=== PATIENT | female | born 1975 | race Caucasian/White ===

== ENCOUNTER → 2020-04-20 10:37 | Outpatient (CLI) | payer OTHER, SELFPAY ==
[2020-04-20 12:54] LABS: Free T4, Direct Thyroxine 0.93 ng/dL (0.78-2.19)
[2020-04-20 13:08] LABS: Thyroid Stimulating Hormone 2.19 uIU/mL (0.47-4.68)
== END ==
PROVIDERS: PCP Internal Medicine; Referring Provider Obstetrics & Gynecology; Visit Provider Obstetrics & Gynecology
DX: N92.0 Excessive and frequent menstruation with regular cycle (principal)
CPT/HCPCS: 36415; 84439; 84443

== ENCOUNTER → 2020-05-02 11:05 | Outpatient (CLI) | payer OTHER, SELFPAY ==
[2020-05-03 17:14] LABS: COVID19 Sendout Not Detected (Not Detect)
== END ==
PROVIDERS: PCP Internal Medicine; Visit Provider Nurse Practitioner
DX: Z11.59 Encounter for screening for other viral diseases (principal)
CPT/HCPCS: 87635

== ENCOUNTER 2020-05-05 08:58 | Day surgery (SDC) | payer OTHER, SELFPAY ==
[2020-05-04 10:56] VITALS: BMI 37.3
--- NOTE | 2020-05-05 | PATH_ITS ---
[facility] Accession Number: [id number] . 01 Material submitted: . endometrium - ENDOMETRIAL CURETTINGS . 01 Diagnosis: Endometrium, Curettage: Early secretory phase endometrium with focal features of breakdown. No evidence of polyp. Negative for atypia, hyperplasia, and malignancy. MRV 05/09/2020 1005 Local . 01 Electronically signed: . Karen Hickman MD, Pathologist NPI- [id number] . 01 Gross description: . Received in formalin, labeled endometrial curettings, and consists of multiple walden-pink fragments of soft tissue measuring 1.5 x 1.5 x 0.3 cm in aggregate. The specimen is filtered and entirely submitted in cassette A1. (EA/[id number]) /V 05/06/2020 1348 Local . 01 Pathologist provided ICD-10: N94.89 . 01 CPT . 274411 Performed at: [address] [facility] [address], [place], [place] [id number] MD David Lennon MD Phone: [phone]
[2020-05-05 09:17] VITALS: BP 145/95; PULSE 16; RESP 85; TEMP 36.2; O2SAT 99; BMI 37.3
[2020-05-05] MEDS: LACTATED RINGERS 1,000 ML 100 ML IV (09:23)
--- NOTE | 2020-05-05 10:03 | SUR.OPER ---
Lithotomy on padded OR bed, head on pillow, arms secured on padded arm boards at <90 degrees abduction. Legs secured in padded yellow fins stirrups.
--- NOTE | 2020-05-05 10:07 | PM.GYNOP.1 ---
Operative Date/Time/Diagnoses Date of procedure: 05/05/20 Time of procedure: 10:48 Pre-op diagnosis: Menorrhagia and dysmenorrhea Post-op diagnosis: same Procedure & Clinicians Procedure: Procedures Operation Date: 05/05/20 10:15 Actual Procedures Side Surgeon p Brigido Delacruz MD Indications: Menorrhagia Dysmenorrhea Surgeon: Dannielle Delacruz Anesthesia Type: General (LMA) Operative Notes Findings: Eight week size anteverted uterus Both fallopian tube ostia observed Slightly thickened endometrium posteriorly Closure Type: not applicable Specimen(s): endometrial curettings Estimated blood loss (mL): 5 Blood products transfused: none Procedure in detail: After informed consent was obtained, the patient was taken to the operating room where she was placed in the dorsal supine position. After adequate LMA general anesthesia was achieved, she was placed in the dorsal lithotomy position, and prepped and draped in the usual sterile fashion. A time-out was performed. A bivalve speculum was placed into the vagina and the anterior lip of the cervix was grasped with a single-tooth tenaculum. The cervical os was sequentially dilated until the hysteroscope could pass easily into the endometrial cavity. Initial inspection with the hysteroscope revealed both fallopian tube ostia. Posteriorly there was slightly thickened endometrium. The hysteroscope was removed. Sharp curettage was performed yielding a moderate amount of endometrial curettings. The uterus was measured from the internal os to the fundus and measured 5 cm. This was set on the NovaSure generator and the catheter. The catheter passed easily into the endometrial cavity. The NovaSure catheter was opened and the width of the uterus was 4.4 cm. This was also set on the generator. This indicated a power of 121 w. The cervix was capped, the cavity assessment was performed and passed. The cycle was initiated and lasted 100 seconds. At the completion of the cycle, the cervix was then capped, the NovaSure catheter was closed and removed from the uterus. The single-tooth tenaculum was removed from the anterior lip of the cervix. The bivalve speculum was removed from the vagina. Sponge, lap, and instrument counts were correct x2. The patient tolerated the procedure well, and was taken to PACU in stable condition. Complications: none Post-operative Condition: stable Disposition: PACU Plan for aftercare: Home after recovery
--- NOTE | 2020-05-05 10:08 | P.HP_ITS ---
History of Present Illness History of Present Illness Date Patient Seen: 05/05/20 Time Patient Seen: 10:08 Chief complaint: NOVASURE ABLATION Narrative: Patient is a 45-year-old 2 para 1 with menorrhagia and dysmenorrhea who presents for a D&C hysteroscopy with NovaSure endometrial ablation Patient History Medical History (Updated 05/05/20 @ 08:59 by Lisha Irene RN) Dysmenorrhea (Acute) Former smoker, stopped smoking many years ago (Acute) Menorrhagia (Acute) Surgical History (Updated 04/06/20 @ 18:05 by Dannielle Delacruz MD) Status post D&C (Acute) [place] teeth extracted (Acute) Family & Social History Social History: household members spouse,children Tobacco & Substance use: Tobacco type cigarettes Smoking Status Former smoker alcohol intake current alcohol intake frequency holiday/special occasion Substance Use Type does not use Meds Home Medications and Allergies Home Medications Medication Instructions Recorded Confirmed Type No Known Home Medications 04/04/20 05/04/20 History Allergies Allergy/AdvReac Type Severity Reaction Status Date / Time No Known Drug Allergies Allergy Verified 05/05/20 09:06 Exam Vital Signs (past 8 hours): - 05/05/20 09:17 Temperature 97.1 F L Pulse Rate 16 L Respiratory Rate 85 H Blood Pressure 145/95 H Pulse Oximetry 99 Oxygen Delivery Method Room Air Narrative Exam Narrative: HEENT: No thyromegaly, no anterior cervical or supraclavicular lymphadenopathy. Lungs:Clear to auscultation bilaterally, no wheezes. Cardiovascular: Regular rate and rhythm, no murmurs, rubs, or gallops. Abdomen: No scars. No hepatosplenomegaly. No masses palpable. External genitalia: Normal Vagina: Normal Cervix: Parous Bimanual exam: 8 Week size anteverted uterus. Mobile. Rectal: No masses. Assessment & Plan Assessment & Plan narrative: Assessment: 45-year-old 2 para 1 011 with dysmenorrhea and menorrhagia Negative endometrial biopsy Plan: D&C hysteroscopy with NovaSure endometrial ablation The risks, benefits, and alternatives to the procedure were explained to the patient. The risks including bleeding, infection, and uterine perforation. She understands these risks and agrees to proceed. A full par Q was held and consent form was signed. COVID-19 COVID-19 status: Negative Result date/Date tested (Pos, Neg/Pending): 05/02/20 Time Spent With Patient Time with patient: 15-24 minutes
--- NOTE | 2020-05-05 10:10 | PM.PREOP ---
Pre-operative Note COVID-19 COVID-19 status: Negative Result date/Date tested (Pos, Neg/Pending): 05/02/20 Interval Note History & Physical reviewed/Exam performed by Physician: Yes Changes to H&P: No H&P completed within 30 days and has changed as indicated here:: 05/05/20
--- NOTE | 2020-05-05 10:41 | SUR.OPER ---
Novasure Ablation settings: Length 5.0, width 4.4, power 121, time 100 seconds.
[2020-05-05 10:57] VITALS: BP 131/89; PULSE 60; RESP 13; TEMP 36.2; O2SAT 98
[2020-05-05 11:01] VITALS: BP 128/87; PULSE 74; RESP 16; O2SAT 97
[2020-05-05] MEDS: OXYCODONE/ACETAMINOPHEN 5/325 TABLET 1 TAB PO (11:02)
[2020-05-05 11:06] VITALS: BP 130/92; PULSE 75; RESP 16; O2SAT 98
[2020-05-05 11:09] VITALS: BP 130/84; PULSE 64; RESP 14; TEMP 36.6; O2SAT 98
[2020-05-05 11:30] VITALS: BP 131/88; PULSE 69; RESP 16; TEMP 36.6; O2SAT 97
--- NOTE | 2020-05-05 12:12 | SUR.PHASEII ---
Per Dr. Delacruz, verbal order received that pt didn't need to void prior to dc.
== END 2020-05-05 11:40 | disposition home or self-care (01) ==
PROVIDERS: PCP Internal Medicine; Referring Provider Obstetrics & Gynecology; Visit Provider Obstetrics & Gynecology
PROC: 0U5B8ZZ Destruction of Endometrium, Via Natural or Artificial Opening Endoscopic (ICD-10-PCS; CPT 58563; principal; 2020-05-05 10:15)
DX: N94.89 Other specified conditions associated with female genital organs and menstrual cycle (principal); N92.0 Excessive and frequent menstruation with regular cycle; N94.6 Dysmenorrhea, unspecified
CPT/HCPCS: 58563; J1100; J1885; J2250; J2405; J2704; J3010

== ENCOUNTER → 2022-10-19 14:15 | Outpatient (CLI) | payer OTHER, SELFPAY ==
[2022-10-19 15:08] LABS: Hematocrit 40.9 % (36-46); Hemoglobin 13.3 g/dL (12.0-16.0); Mean Corpuscular HGB Conc 32.6 % (30-36); Mean Corpuscular Hemoglobin 27.9 PG (26-34); Mean Corpuscular Volume 85.7 fL (80-100); Platelet Count 290 X10^3/uL (150-400); Red Blood Cell Count 4.77 X10^6/uL (4.0-5.2); Red Cell Distribution Width 14.6 % (11.6-14.8); White Blood Cell Count 11.1 X10^3/uL (4.5-11.0)
[2022-10-19 15:20] LABS: Alanine Aminotransferase 24 IU/L (<35); Albumin 4.3 g/dL (3.5-5.0); Albumin Globulin Ratio 1.3 (1.0-2.8); Alkaline Phosphatase 57 U/L (38-126); Aspartate Aminotransferase 22 IU/L (14-36); BUN Creatinine Ratio 24.1 (6-22); Bilirubin Total 0.3 mg/dL (0.2-1.3); Blood Urea Nitrogen 13 mg/dL (7-17); Calcium 8.9 mg/dL (8.4-10.2); Carbon Dioxide 27 mmol/L (22-32); Chloride 104 mmol/L (98-107); Cholesterol 177 mg/dL (140-199); Estimated Glomerular Filt Rate > 60 mL/min (>60); Globulin 3.4 g/dL (1.7-4.1); Glucose 100 mg/dL (70-100); HDL Cholesterol 51 mg/dL (40-60); HEMOLYSIS < 15 (0-50); LDL Cholesterol Calculated 82 mg/dL (<100); Potassium 3.8 mmol/L (3.4-5.1); Sodium 140 mmol/L (137-145); Total Protein 7.7 g/dL (6.3-8.2); Triglycerides 221 mg/dL (35-150)
[2022-10-19 15:28] LABS: Appearance Urine UA SL CLOUDY; Bilirubin Urine UA NEGATIVE (NEGATIVE); Color Urine UA YELLOW; Glucose Urine UA NEGATIVE (Negative); Ketones Urine UA TRACE (NEGATIVE); Leukocyte Esterase Urine UA NEGATIVE (NEGATIVE); Nitrite Urine UA NEGATIVE (Negative); Occult Blood Urine UA 1+ (Negative); Protein Urine UA NEGATIVE (Negative); Specific Gravity Urine UA >=1.030 (1.000-1.035); Urobilinogen Urine UA 0.2 E.U./dL (0.2)
[2022-10-19 15:50] LABS: Bacteria Urine None Seen; Culture Indicated Urine Cult Not Indicated; RBC Urine None Seen (0-5/HPF); Squamous Epithelial Cell Urine 1-5 /HPF (0-5/HPF); WBC Urine None Seen (0-5/HPF)
[2022-10-19 15:51] LABS: Calcium Oxalate Crystals Urine Moderate
== END ==
PROVIDERS: PCP Internal Medicine; Referring Provider Internal Medicine; Visit Provider Internal Medicine
DX: E66.9 Obesity, unspecified (principal); E78.2 Mixed hyperlipidemia; R32 Unspecified urinary incontinence
CPT/HCPCS: 36415; 80053; 80061; 81001; 84443; 85027

== ENCOUNTER 2023-03-13 11:15 | Outpatient (RCR) | payer OTHER, SELFPAY ==
--- NOTE | 2023-01-09 13:48 | PT.OIE ---
Current Diagnoses Other specified disorders of muscle (01/09/23) Stress incontinence (female) (male) (01/09/23) Past Medical History (Last Updated 10/19/22 @ 13:47 by Dae Morales MD) Chicken pox (~1982) Dysmenorrhea Former smoker, stopped smoking many years ago Menorrhagia Mixed hyperlipidemia Obesity (BMI 35.0-39.9 without comorbidity) Urinary incontinence Past Surgical History (Last Updated 10/18/22 @ 21:04 by Medina Booth) Anesthesia Status post D&C (~2008) Status post endometrial ablation (~2019) Filion teeth extracted Visit Care Team Role Provider Type Dae Morales MD Attending Provider Physician Family Provider Primary Care Provider Referring Provider Specialty: Internal Medicine Address: [address] [place] [address], [facility] Email: [email or web address] Physical Therapy Initial Evaluation PT-OP-A Visit Information Start: 01/09/23 09:38 Freq: Status: Active Protocol: Document 01/09/23 12:05 [facility] (Rec: 01/09/23 12:23 [facility] [id number]) Out-Patient Physical Therapy Visit Information Visit Information Visit Type Initial Evaluation Visit Start Time 12:05 Visit Stop Time 12:50 Total Visit Minutes 45 Visit Number 1 Evaluation Information Evaluation Date 01/09/23 PT-OP-B Current Condition Start: 01/09/23 09:38 Freq: Status: Active Protocol: Document 01/09/23 12:05 [facility] (Rec: 01/09/23 12:23 [facility] [id number]) Current Condition History of Current Condition Onset Date 5 years ago but worsening in the past year Current Complaints urinary stress incontinence History of Current Condition 5 year onset of stress incontinence and over the last year she has been having more of a constant leak and is wearing panty liners changing them 3 times a day. She notes the pad is wet but she is not aware it is happening. Just in the last 1-2 weeks she has been wearing them at night. Sneezing, jumping, running causes leakage. She will notice some leakage as she is getting to the bathroom occasionally. Her urinary stream is less than it used to be for her normal. hx of home 12 years ago 9.5 lbs, uterine ablasion done about a year ago and a D anc C prior to her . Treatment Goals Patient/Caregiver Goals pts goals include decreasing stress incontinence, incontinence at night and prevention of further symptoms PT-OP-I Pelvic Floor Start: 01/09/23 09:38 Freq: Status: Active Protocol: Document 01/09/23 12:05 [facility] (Rec: 01/09/23 13:34 [facility] [id number]) Pelvic Floor Assessment Urine Pelvic Floor Surgery No Other Urinary Symptoms urinary stress incontinence and leakage without warning Leakage Size Medium Leakage Cause Cough,Exercise,Lifting,Sneeze Other Leakage Causes pt notes she can leak on the way to the bathroom Leaks Per Day constant leakage Nocturia 0 Pads Used In 24 Hours 3-4 Urine Pad Type Panty Liner Pelvic Clock Pelvic Clock 12-3 Atrophy Pelvic Clock 3-6 Atrophy Pelvic Clock 6-9 Atrophy Pelvic Clock 9-12 Atrophy Contraction Ability Voluntary Contraction Weak Voluntary Relaxation Weak Manual Muscle Testing Anterior 1 Manual Muscle Testing Posterior 2 Muscle Endurance (Seconds) 3 PT-OP-M Strength Start: 01/09/23 09:38 Freq: Status: Active Protocol: Document 01/09/23 12:05 [facility] (Rec: 01/09/23 13:46 [facility] [id number]) Trunk Strength Trunk Manual Muscle Testing Flexion 3- Fair- Core Stabilization poor transverse abdominal strength PT-OP-Q Treatments Start: 01/09/23 09:38 Freq: Status: Active Protocol: Document 01/09/23 12:05 [facility] (Rec: 01/09/23 13:34 [facility] [id number]) Therapeutic Exercises Supine Exercises supine hip ER with theraband Reps/Minutes 3 x 10 reps Comments pt given a HEP with level 2 theraband ball squeeze with anterior pelvic floor recruitment Reps/Minutes x 10 reps holding 5 seconds Comments focus on anterior pelvic floor Sidelying Exercises TA facilitation Reps/Minutes worked on lower abdominal facilitation in sidelying Comments pt to work on lower abdominal facilitation prior to activities Self-Care/Home Management Treatment Education Patient Education Home Exercise Program Other Education pt was given a bladder diary and educated on how to fill it out, she was also educated on increasing water intake as she is drinking approx 4 glasses of water per day at this time. PT-OP-T Assessment and Plan Start: 01/09/23 09:38 Freq: Status: Active Protocol: Document 01/09/23 12:05 [facility] (Rec: 01/09/23 13:34 [facility] [id number]) Physical Therapy Assessment Rehab Potential Rehabilitation Potential Good Evaluation Complexity Number of Personal Factors/Comorbidities 0 Number of Body Systems Impaired 1-2 Clinical Presentation at Evaluation Stable Impairments Impairments Activity Tolerance,Functional Activities,Soft Tissue Mobility,Strength Goals 3 Impairment poor endurance of the pelvic floor Short Term Goal (STG) Ophelia is able to sustain a pelvic floor contraction x 10 seconds in supine STG Duration 5 weeks Retirement Goal (LTG) Ophelia is able to sustain a pelvic floor contraction in standing x 10 seconds LTG Duration 12 weeks 2 Impairment Pelvic floor weakness especially in the anterior pelvic floor Wheat Cleaner Goal (LTG) Ophelia is able to improve pelvic floor muscle strength by 1 muscle grade or better for improved bladder support LTG Duration 8 weeks 1 Impairment Urinary stress incontinence and leakage without awareness that it is happening that occurs constantly throughout the day Short Term Goal (STG) Ophelia is educated on bladder irritants and given a home program to begin working on pelvic floor strength STG Duration 3 weeks Wheat Cleaner Goal (LTG) Ophelia reports a overall reducation in leakage throughout the day and she is able to decrease to 1 panti liner per day and not needing a panti liner at night LTG Duration 12 weeks Assessment Summary Assessment Ophelia is a 47 year old female referred to PT with urinary stress incontinence. Ophelia reports her symptoms began approximately 5 years ago but have been progressing in the past year. She will leak with activities such as coughing, sneezing and exercise but also more recently notes she will leak without being aware she is leaking. She was using 1 panty liner per day but now is finding she has to change it a few times per day and can also wake up wet in the am. Charito has a past medical hx of 1 vaginal delivery 12 years ago, D &C, and uterine ablation 1 year ago. With examination today Ophelia presents with weakness of the levator ani especially in the anterior peña of the levator ani. She test 1/5 MMT for the anterior and right peña of the pelvic floor and 2/5 MMT for the left lateral wall and posterior pelvic floor. She lacks endurance to sustain a pelvic floor contraction more than a few seconds. Ophelia is also weak in her lower abdominal muscles. She was educated today on bladder irritants and given a bladder diary for the week. Ophelia was educated in pelvic floor strengthening exercises to begin with for home. She is a good candidate for pelvic floor PT Physical Therapy Plan Frequency and Duration Frequency of Treatment 1x/Week Duration of treatment (weeks) 12 Plan of Care Start Date 01/09/23 Plan of Care End Date 04/03/23 Therapeutic Interventions Therapeutic Interventions Neuromuscular Re-education, Patient/Caregiver Education, Self-Care/Home Management, Therapeutic Exercises Modalities Biofeedback Next Visit Focus/Plan Next Note Type Treatment Note Next Visit Plan Initiate EMG biofeedback for pelvic floor neuro re-ed and endurance training of the pelvic floor
--- NOTE | 2023-01-09 13:48 | PT.OPPOC ---
Physical, Occupational & Speech Therapy At [facility] Current Diagnoses Other specified disorders of muscle (01/09/23) Stress incontinence (female) (male) (01/09/23) Visit Care Team Role Provider Type Dae Morales MD Attending Provider Physician Family Provider Primary Care Provider Referring Provider Specialty: Internal Medicine Address: [address] [place] [address], [facility] Email: [email or web address] Plan Of Care PT-OP-T Assessment and Plan Start: 01/09/23 09:38 Freq: Status: Active Protocol: Document 01/09/23 12:05 [facility] (Rec: 01/09/23 13:34 [facility] [id number]) Physical Therapy Assessment Rehab Potential Rehabilitation Potential Good Evaluation Complexity Number of Personal Factors/Comorbidities 0 Number of Body Systems Impaired 1-2 Clinical Presentation at Evaluation Stable Impairments Impairments Activity Tolerance,Functional Activities,Soft Tissue Mobility,Strength Goals 3 Impairment poor endurance of the pelvic floor Short Term Goal (STG) Ophelia is able to sustain a pelvic floor contraction x 10 seconds in supine STG Duration 5 weeks Chief Architect Goal (LTG) Ophelia is able to sustain a pelvic floor contraction in standing x 10 seconds LTG Duration 12 weeks 2 Impairment Pelvic floor weakness especially in the anterior pelvic floor Chief Architect Goal (LTG) Ophelia is able to improve pelvic floor muscle strength by 1 muscle grade or better for improved bladder support LTG Duration 8 weeks 1 Impairment Urinary stress incontinence and leakage without awareness that it is happening that occurs constantly throughout the day Short Term Goal (STG) Ophelia is educated on bladder irritants and given a home program to begin working on pelvic floor strength STG Duration 3 weeks Chief Architect Goal (LTG) Ophelia reports a overall re-education in leakage throughout the day and she is able to decrease to 1 panti liner per day and not needing a panti liner at night LTG Duration 12 weeks Assessment Summary Assessment Ophelia is a 47 year old female referred to PT with urinary stress incontinence. Ophelia reports her symptoms began approximately 5 years ago but have been progressing in the past year. She will leak with activities such as coughing, sneezing and exercise but also more recently notes she will leak without being aware she is leaking. She was using 1 panty liner per day but now is finding she has to change it a few times per day and can also wake up wet in the am. Ophelia has a past medical hx of 1 vaginal delivery 12 years ago, D &C, and uterine ablation 1 year ago. With examination today Ophelia presents with weakness of the levator ani especially in the anterior peña of the levator ani. She test 1/5 MMT for the anterior and right peña of the pelvic floor and 2/5 MMT for the left lateral wall and posterior pelvic floor. She lacks endurance to sustain a pelvic floor contraction more than a few seconds. Ophelia is also weak in her lower abdominal muscles. She was educated today on bladder irritants and given a bladder diary for the week. Ophelia was educated in pelvic floor strengthening exercises to begin with for home. She is a good candidate for pelvic floor PT Physical Therapy Plan Frequency and Duration Frequency of Treatment 1x/Week Duration of treatment (weeks) 12 Plan of Care Start Date 01/09/23 Plan of Care End Date 04/03/23 Therapeutic Interventions Therapeutic Interventions Neuromuscular Re-education, Patient/Caregiver Education, Self-Care/Home Management, Therapeutic Exercises Modalities Biofeedback Next Visit Focus/Plan Next Note Type Treatment Note Next Visit Plan Initiate EMG biofeedback for pelvic floor neuro re-ed and endurance training of the pelvic floor Plan of Care Dates Plan of Care Start Date 01/09/23 Plan of Care End Date 04/03/23 Electronically Signed by: Vicki Almaraz, PT 01/09/23 9914 If you are in agreement with this Plan of Care, please return a signed and dated copy. I have reviewed this Plan of Care and certify that the skilled therapy services above are required to meet the patient?s needs. Physician Signature Date Printed Name and Credentials Clinical Instructor Signature Printed Name and Credentials
--- NOTE | 2023-02-14 14:27 | PT.OTN ---
Current Diagnoses Other specified disorders of muscle (02/14/23) Stress incontinence (female) (male) (02/14/23) Physical Therapy Treatment Note PT-OP-A Visit Information Start: 01/09/23 09:38 Freq: Status: Active Protocol: Document 02/14/23 12:15 [facility] (Rec: 02/14/23 12:28 [facility] [id number]) Out-Patient Physical Therapy Visit Information Visit Information Visit Start Time 12:15 Visit Stop Time 13:00 Total Visit Minutes 45 Visit Number 2 PT-OP-B Current Condition Start: 01/09/23 09:38 Freq: Status: Active Protocol: Document 01/09/23 12:05 [facility] (Rec: 01/09/23 12:23 [facility] [id number]) Current Condition History of Current Condition Onset Date 5 years ago but worsening in the past year Current Complaints urinary stress incontinence History of Current Condition 5 year onset of stress incontinence and over the last year she has been having more of a constant leak and is wearing panty liners changing them 3 times a day. She notes the pad is wet but she is not aware it is happening. Just in the last 1-2 weeks she has been wearing them at night. Sneezing, jumping, running causes leakage. She will notice some leakage as she is getting to the bathroom occasionally. Her urinary stream is less than it used to be for her normal. hx of home 12 years ago 9.5 lbs, uterine ablasion done about a year ago and a D anc C prior to her . Treatment Goals Patient/Caregiver Goals pts goals include decreasing stress incontinence, incontinence at night and prevention of further symptoms PT-OP-C Subjective Start: 01/09/23 09:38 Freq: Status: Active Protocol: Document 02/14/23 12:15 [facility] (Rec: 02/14/23 12:28 [facility] [id number]) OP-PT Subjective Patient Comments Patient Comments pt notes she did bring her band to have it tightened up, she is doing good with ball squeezes and feels like she is feeling it tighten now more PT-OP-I Pelvic Floor Start: 01/09/23 09:38 Freq: Status: Active Protocol: Document 01/09/23 12:05 [facility] (Rec: 01/09/23 13:34 [facility] [id number]) Pelvic Floor Assessment Urine Pelvic Floor Surgery No Other Urinary Symptoms urinary stress incontinence and leakage without warning Leakage Size Medium Leakage Cause Cough,Exercise,Lifting,Sneeze Other Leakage Causes pt notes she can leak on the way to the bathroom Leaks Per Day constant leakage Nocturia 0 Pads Used In 24 Hours 3-4 Urine Pad Type Panty Liner Pelvic Clock Pelvic Clock 12-3 Atrophy Pelvic Clock 3-6 Atrophy Pelvic Clock 6-9 Atrophy Pelvic Clock 9-12 Atrophy Contraction Ability Voluntary Contraction Weak Voluntary Relaxation Weak Manual Muscle Testing Anterior 1 Manual Muscle Testing Posterior 2 Muscle Endurance (Seconds) 3 PT-OP-M Strength Start: 01/09/23 09:38 Freq: Status: Active Protocol: Document 01/09/23 12:05 [facility] (Rec: 01/09/23 13:46 [facility] [id number]) Trunk Strength Trunk Manual Muscle Testing Flexion 3- Fair- Core Stabilization poor transverse abdominal strength PT-OP-Q Treatments Start: 01/09/23 09:38 Freq: Status: Active Protocol: Document 02/14/23 12:15 [facility] (Rec: 02/14/23 13:08 [facility] [id number]) Therapeutic Exercises Supine Exercises quick contractions Reps/Minutes x 10 reps EMG biofeedback pelvic floor long holds Reps/Minutes 10 sec hold 10 sec rest Comments 11.6 and 34.2 max ball squeeze with anterior pelvic floor recruitment Reps/Minutes x 10 reps holding 5 seconds Comments focus on anterior pelvic floor Self-Care/Home Management Treatment Education Patient Education Home Exercise Program Other Education review of bladder diary PT-OP-T Assessment and Plan Start: 01/09/23 09:38 Freq: Status: Active Protocol: Document 02/14/23 12:15 [facility] (Rec: 02/14/23 13:08 [facility] [id number]) Physical Therapy Assessment Assessment Summary Assessment pt does note her leakage seems to be constant as she will go through a couple of panty liners per day. We discussed not over doing it with her exercises. She was able to isolate with her pelvic floor today on EMG biofeedback. Added in pelvic floor isolations x 5 sec hold with 10 sec rest for home. Endurance is lacking so started with 5 seconds rather than 10 Physical Therapy Plan Frequency and Duration Frequency of Treatment 1x/Week Duration of treatment (weeks) 12 Plan of Care Start Date 01/09/23 Plan of Care End Date 04/03/23 Therapeutic Interventions Therapeutic Interventions Neuromuscular Re-education, Patient/Caregiver Education, Self-Care/Home Management, Therapeutic Exercises Modalities Biofeedback Next Visit Focus/Plan Next Note Type Treatment Note Next Visit Plan progress pelvic floor strengthening as pt is able, work on TA isolations next visit in quadruped
--- NOTE | 2023-02-20 13:03 | PT.OTN ---
Current Diagnoses Other specified disorders of muscle (02/20/23) Stress incontinence (female) (male) (02/20/23) Physical Therapy Treatment Note PT-OP-A Visit Information Start: 01/09/23 09:38 Freq: Status: Active Protocol: Document 02/20/23 12:13 [facility] (Rec: 02/20/23 13:03 [facility] [id number]) Out-Patient Physical Therapy Visit Information Visit Information Visit Type Treatment Note Visit Start Time 12:15 Visit Stop Time 13:00 Total Visit Minutes 45 Visit Number 3 PT-OP-B Current Condition Start: 01/09/23 09:38 Freq: Status: Active Protocol: Document 01/09/23 12:05 [facility] (Rec: 01/09/23 12:23 [facility] [id number]) Current Condition History of Current Condition Onset Date 5 years ago but worsening in the past year Current Complaints urinary stress incontinence History of Current Condition 5 year onset of stress incontinence and over the last year she has been having more of a constant leak and is wearing panty liners changing them 3 times a day. She notes the pad is wet but she is not aware it is happening. Just in the last 1-2 weeks she has been wearing them at night. Sneezing, jumping, running causes leakage. She will notice some leakage as she is getting to the bathroom occasionally. Her urinary stream is less than it used to be for her normal. hx of home 12 years ago 9.5 lbs, uterine ablasion done about a year ago and a D anc C prior to her . Treatment Goals Patient/Caregiver Goals pts goals include decreasing stress incontinence, incontinence at night and prevention of further symptoms PT-OP-C Subjective Start: 01/09/23 09:38 Freq: Status: Active Protocol: Document 02/20/23 12:13 [facility] (Rec: 02/20/23 13:03 [facility] [id number]) OP-PT Subjective Patient Comments Patient Comments She notes that she is better now without the ball than with the ball. PT-OP-I Pelvic Floor Start: 01/09/23 09:38 Freq: Status: Active Protocol: Document 01/09/23 12:05 [facility] (Rec: 01/09/23 13:34 [facility] [id number]) Pelvic Floor Assessment Urine Pelvic Floor Surgery No Other Urinary Symptoms urinary stress incontinence and leakage without warning Leakage Size Medium Leakage Cause Cough,Exercise,Lifting,Sneeze Other Leakage Causes pt notes she can leak on the way to the bathroom Leaks Per Day constant leakage Nocturia 0 Pads Used In 24 Hours 3-4 Urine Pad Type Panty Liner Pelvic Clock Pelvic Clock 12-3 Atrophy Pelvic Clock 3-6 Atrophy Pelvic Clock 6-9 Atrophy Pelvic Clock 9-12 Atrophy Contraction Ability Voluntary Contraction Weak Voluntary Relaxation Weak Manual Muscle Testing Anterior 1 Manual Muscle Testing Posterior 2 Muscle Endurance (Seconds) 3 PT-OP-M Strength Start: 01/09/23 09:38 Freq: Status: Active Protocol: Document 01/09/23 12:05 [facility] (Rec: 01/09/23 13:46 [facility] [id number]) Trunk Strength Trunk Manual Muscle Testing Flexion 3- Fair- Core Stabilization poor transverse abdominal strength PT-OP-Q Treatments Start: 01/09/23 09:38 Freq: Status: Active Protocol: Document 02/20/23 12:13 [facility] (Rec: 02/20/23 13:03 [facility] [id number]) Therapeutic Exercises Supine Exercises diaphragmatic breathing Reps/Minutes 3-5 min per day quick contractions Reps/Minutes x 10 reps EMG biofeedback pelvic floor long holds Comments 6.8 average and 23.7 max Sidelying Exercises clam shells Reps/Minutes 2 x 10 Comments she is tighter than her left side Other Exercises quadruped TA facilitation Reps/Minutes x 10 reps PT-OP-T Assessment and Plan Start: 01/09/23 09:38 Freq: Status: Active Protocol: Document 02/20/23 12:13 [facility] (Rec: 02/20/23 13:03 [facility] [id number]) Physical Therapy Assessment Assessment Summary Assessment I worked on diaphragmatic breathing today working on not breath holding with pelvic floor contractions. This was difficult for Ophelia. I added in quadruped TA as well as diaphragmatic breathing. PT was performing a breath hold when attempting pelvic floor contractions Physical Therapy Plan Frequency and Duration Frequency of Treatment 1x/Week Duration of treatment (weeks) 12 Plan of Care Start Date 01/09/23 Plan of Care End Date 04/03/23 Next Visit Focus/Plan Next Note Type Treatment Note Next Visit Plan continue working on pelvic floor strength, endurance, TA strength reassess diaphragmatic breathing next visit
--- NOTE | 2023-03-13 13:00 | PT.OTN ---
Current Diagnoses Other specified disorders of muscle (03/13/23) Stress incontinence (female) (male) (03/13/23) Physical Therapy Treatment Note PT-OP-A Visit Information Start: 01/09/23 09:38 Freq: Status: Active Protocol: Document 03/13/23 11:20 [facility] (Rec: 03/13/23 12:52 [facility] [id number]) Out-Patient Physical Therapy Visit Information Visit Information Visit Type Progress Note Visit Start Time 11:17 Visit Stop Time 12:00 Total Visit Minutes 43 Visit Number 4 PT-OP-B Current Condition Start: 01/09/23 09:38 Freq: Status: Active Protocol: Document 01/09/23 12:05 [facility] (Rec: 01/09/23 12:23 [facility] [id number]) Current Condition History of Current Condition Onset Date 5 years ago but worsening in the past year Current Complaints urinary stress incontinence History of Current Condition 5 year onset of stress incontinence and over the last year she has been having more of a constant leak and is wearing panty liners changing them 3 times a day. She notes the pad is wet but she is not aware it is happening. Just in the last 1-2 weeks she has been wearing them at night. Sneezing, jumping, running causes leakage. She will notice some leakage as she is getting to the bathroom occasionally. Her urinary stream is less than it used to be for her normal. hx of home 12 years ago 9.5 lbs, uterine ablasion done about a year ago and a D anc C prior to her . Treatment Goals Patient/Caregiver Goals pts goals include decreasing stress incontinence, incontinence at night and prevention of further symptoms PT-OP-C Subjective Start: 01/09/23 09:38 Freq: Status: Active Protocol: Document 03/13/23 11:20 [facility] (Rec: 03/13/23 12:04 [facility] [id number]) OP-PT Subjective Patient Comments Patient Comments pt has been doing her exercises 2 sets of 15 am and PM. She is still wearning a panty liner. She hasn't noticed a difference in her leaking yet. She is wondering if there is anything else that can help her improve PT-OP-I Pelvic Floor Start: 01/09/23 09:38 Freq: Status: Active Protocol: Document 01/09/23 12:05 [facility] (Rec: 01/09/23 13:34 [facility] [id number]) Pelvic Floor Assessment Urine Pelvic Floor Surgery No Other Urinary Symptoms urinary stress incontinence and leakage without warning Leakage Size Medium Leakage Cause Cough,Exercise,Lifting,Sneeze Other Leakage Causes pt notes she can leak on the way to the bathroom Leaks Per Day constant leakage Nocturia 0 Pads Used In 24 Hours 3-4 Urine Pad Type Panty Liner Pelvic Clock Pelvic Clock 12-3 Atrophy Pelvic Clock 3-6 Atrophy Pelvic Clock 6-9 Atrophy Pelvic Clock 9-12 Atrophy Contraction Ability Voluntary Contraction Weak Voluntary Relaxation Weak Manual Muscle Testing Anterior 1 Manual Muscle Testing Posterior 2 Muscle Endurance (Seconds) 3 PT-OP-M Strength Start: 01/09/23 09:38 Freq: Status: Active Protocol: Document 01/09/23 12:05 [facility] (Rec: 01/09/23 13:46 [facility] [id number]) Trunk Strength Trunk Manual Muscle Testing Flexion 3- Fair- Core Stabilization poor transverse abdominal strength PT-OP-Q Treatments Start: 01/09/23 09:38 Freq: Status: Active Protocol: Document 03/13/23 11:20 [facility] (Rec: 03/13/23 12:04 [facility] [id number]) Therapeutic Exercises Supine Exercises TA with march Reps/Minutes x 10 reps diaphragmatic breathing Reps/Minutes 3-5 min per day EMG biofeedback pelvic floor long holds Reps/Minutes 10 sec hold 10 sec rest Comments 8.5 and 18.8 max Sidelying Exercises clam shells Sidelying Exercise Name HEP Self-Care/Home Management Treatment Education Patient Education Home Exercise Program Other Education pt was educated on vaginal estrogen cream as a way of helping her tissues with improved blood flow and ability to tighten in her pelvic floor. Her exercises were progressed today and she was given transverse abdominal stabilization with marches and given a home hand out PT-OP-T Assessment and Plan Start: 01/09/23 09:38 Freq: Status: Active Protocol: Document 03/13/23 11:20 [facility] (Rec: 03/13/23 12:04 [facility] [id number]) Physical Therapy Assessment Goals 3 Impairment poor endurance of the pelvic floor Short Term Goal (STG) Ophelia is able to sustain a pelvic floor contraction x 10 seconds in supine GOAL MET STG Duration 5 weeks Senior Living Goal (LTG) Ophelia is able to sustain a pelvic floor contraction in standing x 10 seconds goal not yet met, pt to start working on pelvic floor recruitment in standing LTG Duration 12 weeks 2 Impairment Pelvic floor weakness especially in the anterior pelvic floor Senior Living Goal (LTG) Ophelia is able to improve pelvic floor muscle strength by 1 muscle grade or better for improved bladder support slowly improving and ot is showing improvements of her strength on EMG biofeedback LTG Duration 8 weeks 1 Impairment Urinary stress incontinence and leakage without awareness that it is happening that occurs constantly throughout the day Short Term Goal (STG) Ophelia is educated on bladder irritants and given a home program to begin working on pelvic floor strength pt has been working on her hep and I continue to update this as she can tolerate STG Duration 3 weeks Sld Educational Aide Goal (LTG) Ophelia reports a overall reducation in leakage throughout the day and she is able to decrease to 1 panti liner per day and not needing a panti liner at night Goal not yet met LTG Duration 12 weeks Assessment Summary Assessment Ophelia did much better today with recruiting her pelvic floor with a exhale. She is no longer holding her breath and is performing better isolation of her pelvic floor muscles. I added in TA stabilization for her with ramu and she did well with this. We also talked about vaginal estrogen cream how this may also help her vaginal tissues and she will be talking with her for a prescription. She would benefit from continuing PT Physical Therapy Plan Frequency and Duration Frequency of Treatment 1x/Week Duration of treatment (weeks) 8 Plan of Care Start Date 03/13/23 Plan of Care End Date 05/14/23
--- NOTE | 2023-03-13 13:01 | PT.OPPOC ---
Physical, Occupational & Speech Therapy At [facility] Current Diagnoses Other specified disorders of muscle (03/13/23) Stress incontinence (female) (male) (03/13/23) Visit Care Team Role Provider Type Dae Morales MD Attending Provider Physician Family Provider Primary Care Provider Referring Provider Specialty: Internal Medicine Address: [address] [place] [address], [facility] Email: [email or web address] Plan Of Care PT-OP-T Assessment and Plan Start: 01/09/23 09:38 Freq: Status: Active Protocol: Document 03/13/23 11:20 [facility] (Rec: 03/13/23 12:04 [facility]S [facility]CLUDE 234 BEDS AT THE [facility] [id number]) Physical Therapy Assessment Goals 3 Impairment poor endurance of the pelvic floor Short Term Goal (STG) Ophelia is able to sustain a pelvic floor contraction x 10 seconds in supine GOAL MET STG Duration 5 weeks Intermediate Goal (LTG) Ophelia is able to sustain a pelvic floor contraction in standing x 10 seconds goal not yet met, pt to start working on pelvic floor recruitment in standing LTG Duration 12 weeks 2 Impairment Pelvic floor weakness especially in the anterior pelvic floor Intermediate Goal (LTG) Ophelia is able to improve pelvic floor muscle strength by 1 muscle grade or better for improved bladder support slowly improving and ot is showing improvements of her strength on EMG biofeedback LTG Duration 8 weeks 1 Impairment Urinary stress incontinence and leakage without awareness that it is happening that occurs constantly throughout the day Short Term Goal (STG) Ophelia is educated on bladder irritants and given a home program to begin working on pelvic floor strength pt has been working on her hep and I continue to update this as she can tolerate STG Duration 3 weeks Intermediate Goal (LTG) Ophelia reports a overall re-education in leakage throughout the day and she is able to decrease to 1 panti liner per day and not needing a panti liner at night Goal not yet met LTG Duration 12 weeks Assessment Summary Assessment Ophelia did much better today with recruiting her pelvic floor with a exhale. She is no longer holding her breath and is performing better isolation of her pelvic floor muscles. I added in TA stabilization for her with marches and she did well with this. We also talked about vaginal estrogen cream how this may also help her vaginal tissues and she will be talking with her DREfrain for a prescription. She would benefit from continuing PT Physical Therapy Plan Frequency and Duration Frequency of Treatment 1x/Week Duration of treatment (weeks) 8 Plan of Care Start Date 03/13/23 Plan of Care End Date 05/14/23 Plan of Care Dates Plan of Care Start Date 03/13/23 Plan of Care End Date 05/14/23 Electronically Signed by: Vicki Almaraz, PT 03/13/23 0192 If you are in agreement with this Plan of Care, please return a signed and dated copy. I have reviewed this Plan of Care and certify that the skilled therapy services above are required to meet the patient?s needs. Physician Signature Date Printed Name and Credentials Clinical Instructor Signature Printed Name and Credentials
--- NOTE | 2023-04-03 11:48 | PT.OPDS ---
Current Diagnoses Other specified disorders of muscle (03/13/23) Stress incontinence (female) (male) (03/13/23) Visit Care Team Role Provider Type Dae Morales MD Attending Provider Physician Family Provider Primary Care Provider Referring Provider Specialty: Internal Medicine Address: [address] [place] [address], [facility] Email: [email or web address] Visit Number Visit Number 4 Discharge Summary PT-OP-B Current Condition Start: 01/09/23 09:38 Freq: Status: Active Protocol: Document 01/09/23 12:05 [facility] (Rec: 01/09/23 12:23 [facility] OF [facility] [id number]) Current Condition History of Current Condition Onset Date 5 years ago but worsening in the past year Current Complaints urinary stress incontinence History of Current Condition 5 year onset of stress incontinence and over the last year she has been having more of a constant leak and is wearing panty liners changing them 3 times a day. She notes the pad is wet but she is not aware it is happening. Just in the last 1-2 weeks she has been wearing them at night. Sneezing, jumping, running causes leakage. She will notice some leakage as she is getting to the bathroom occasionally. Her urinary stream is less than it used to be for her normal. hx of home 12 years ago 9.5 lbs, uterine ablasion done about a year ago and a D anc C prior to her . Treatment Goals Patient/Caregiver Goals pts goals include decreasing stress incontinence, incontinence at night and prevention of further symptoms PT-OP-C Subjective Start: 01/09/23 09:38 Freq: Status: Active Protocol: Document 03/13/23 11:20 [facility] (Rec: 03/13/23 12:04 [facility] [id number]) OP-PT Subjective Patient Comments Patient Comments pt has been doing her exercises 2 sets of 15 am and PM. She is still wearning a panty liner. She hasn't noticed a difference in her leaking yet. She is wondering if there is anything else that can help her improve PT-OP-I Pelvic Floor Start: 01/09/23 09:38 Freq: Status: Active Protocol: Document 01/09/23 12:05 [facility] (Rec: 01/09/23 13:34 [facility] [id number]) Pelvic Floor Assessment Urine Pelvic Floor Surgery No Other Urinary Symptoms urinary stress incontinence and leakage without warning Leakage Size Medium Leakage Cause Cough,Exercise,Lifting,Sneeze Other Leakage Causes pt notes she can leak on the way to the bathroom Leaks Per Day constant leakage Nocturia 0 Pads Used In 24 Hours 3-4 Urine Pad Type Panty Liner Pelvic Clock Pelvic Clock 12-3 Atrophy Pelvic Clock 3-6 Atrophy Pelvic Clock 6-9 Atrophy Pelvic Clock 9-12 Atrophy Contraction Ability Voluntary Contraction Weak Voluntary Relaxation Weak Manual Muscle Testing Anterior 1 Manual Muscle Testing Posterior 2 Muscle Endurance (Seconds) 3 PT-OP-M Strength Start: 01/09/23 09:38 Freq: Status: Active Protocol: Document 01/09/23 12:05 [facility] (Rec: 01/09/23 13:46 [facility] [id number]) Trunk Strength Trunk Manual Muscle Testing Flexion 3- Fair- Core Stabilization poor transverse abdominal strength PT-OP-T Assessment and Plan Start: 01/09/23 09:38 Freq: Status: Active Protocol: Document 04/03/23 11:47 [facility] LICENSE OF [facility] (Rec: 04/03/23 11:48 [facility] LICENSE OF [facility] [id number]) Physical Therapy Assessment Goals 3 Impairment poor endurance of the pelvic floor Short Term Goal (STG) Ophelia is able to sustain a pelvic floor contraction x 10 seconds in supine GOAL MET STG Duration 5 weeks Tear Down Worker Goal (LTG) Ophelia is able to sustain a pelvic floor contraction in standing x 10 seconds goal not yet met, pt to start working on pelvic floor recruitment in standing LTG Duration 12 weeks 2 Impairment Pelvic floor weakness especially in the anterior pelvic floor Tear Down Worker Goal (LTG) Ophelia is able to improve pelvic floor muscle strength by 1 muscle grade or better for improved bladder support slowly improving and ot is showing improvements of her strength on EMG biofeedback LTG Duration 8 weeks 1 Impairment Urinary stress incontinence and leakage without awareness that it is happening that occurs constantly throughout the day Short Term Goal (STG) Ophelia is educated on bladder irritants and given a home program to begin working on pelvic floor strength pt has been working on her hep and I continue to update this as she can tolerate STG Duration 3 weeks Correction Goal (LTG) Ophelia reports a overall reducation in leakage throughout the day and she is able to decrease to 1 panti liner per day and not needing a panti liner at night Goal not yet met LTG Duration 12 weeks Assessment Summary Assessment Ophelia has cx her remaining PT visits as she feels she has not noticed any change with her urinary incontinence symptoms Physical Therapy Plan Discharge Physical Therapy Discharge Reasons Patient Request
== END 2023-04-05 10:55 | disposition home or self-care (01) ==
LOC: PHYS 11:15
PROVIDERS: Family Provider Internal Medicine; PCP Internal Medicine; Referring Provider Internal Medicine; Visit Provider Internal Medicine
DX: N39.3 Stress incontinence (female) (male) (principal); M62.89 Other specified disorders of muscle
CPT/HCPCS: 97110; 97161; 97535